=== PATIENT | male | born 1930 | race Caucasian/White ===

== ENCOUNTER 2017-09-03 15:13 | Emergency (ER) | payer MEDICARE, MEDICAID ==
--- NOTE | 2017-09-03 18:57 | CT ---
CT BRAIN WITHOUT CONTRAST: Date: 09-03-17 Comparison: October 2016 FINDINGS: No intracranial bleeding or extraaxial hematoma was seen. 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 There is no sign of acute stroke, mass, or john a. Atrophy is present with mild compensatory dilatation of the ventricles. The calvarium appears inta ct. The sphenoid sinus and mastoid air cells are clear. The visible portions of the facial bones show ed no acute change. There is slight nasal septal deviation towards the right. The visible paranasal s inuses are clear. IMPRESSION: No acute intracranial finding. POS: HOME
== END 2017-09-03 15:50 | disposition home or self-care (01) ==
LOC: BURERS 15:13
DX: S01.81XA Laceration without foreign body of other part of head, initial encounter (principal); I50.9 Heart failure, unspecified; J44.9 Chronic obstructive pulmonary disease, unspecified; Z79.899 Other long term (current) drug therapy; W19.XXXA Unspecified fall, initial encounter
CPT/HCPCS: 70450; 93005